=== PATIENT | male | born 1995 | race Two or more races ===

== ENCOUNTER 2020-08-09 22:33 | Emergency (ER) | payer SELFPAY ==
[~2020-08-09] VITALS: Ht 167.6 cm; Wt 83.9 kg
[2020-08-10 01:33] VITALS: BP 107/74
== END 2020-08-10 02:22 | disposition home or self-care (01) ==
LOC: ER 22:33
DX: S05.01XA Injury of conjunctiva and corneal abrasion without foreign body, right eye, initial encounter (principal); X58.XXXA Exposure to other specified factors, initial encounter; Y93.89 Activity, other specified; Y92.89 Other specified places as the place of occurrence of the external cause; Y99.8 Other external cause status
CPT/HCPCS: 70480